=== PATIENT | female | born 1955 | race Caucasian/White ===

== ENCOUNTER 2024-09-12 13:52 | Emergency (ER) | payer MEDICARE, OTHER ==
[~2024-09-12] VITALS: Ht 152.4 cm; Wt 94.3 kg
[2024-09-12] MEDS ORDERED: KETOROLAC TROMETHAMINE INJ 30 MG/ML VIAL ONE (14:33)
[2024-09-12] MEDS: KETOROLAC TROMETHAMINE INJ 30 MG/ML VIAL IM ONE (14:44)
[2024-09-12] MEDS ORDERED: ACETAMINOPHEN ES 500 MG TABLET ONE (16:27)
[2024-09-12] MEDS: ACETAMINOPHEN 325 MG TABLET PO ONE (16:29)
[2024-09-12 17:37] VITALS: BP 151/99; TEMP 98; O2SAT 99
== END 2024-09-12 17:37 | disposition home or self-care (01) ==
LOC: ER 13:55
DX: S10.81XA Abrasion of other specified part of neck, initial encounter (principal); M25.571 Pain in right ankle and joints of right foot; R07.89 Other chest pain; R51.9 Headache, unspecified; E11.9 Type 2 diabetes mellitus without complications; I10 Essential (primary) hypertension; V43.52XA Car driver injured in collision with other type car in traffic accident, initial encounter; Y93.89 Activity, other specified; Y92.488 Other paved roadways as the place of occurrence of the external cause; Y99.8 Other external cause status
CPT/HCPCS: 99285; 70450; 71045; 96372; 73610; 73630; J1885